=== PATIENT | female | born 1955 | race Caucasian/White ===

== ENCOUNTER 2018-02-28 15:00 | Outpatient (RCR) | payer BC, OTHER, SELFPAY | END 2018-02-28 15:05 | disposition home or self-care (01) | LOC: OT 15:00 | PROVIDERS: Visit Provider Orthopaedic Surgery Adult Reconstructive Orthopaedic Surgery | DX: Z96.611 Presence of right artificial shoulder joint (principal) | CPT/HCPCS: 97014; 97110; 97140; 97166; G0283 ==

== ENCOUNTER 2018-08-02 15:30 | Outpatient (RCR) | payer BC, OTHER, SELFPAY | END 2018-08-02 15:35 | disposition home or self-care (01) | LOC: PT 15:30 | PROVIDERS: Visit Provider Orthopaedic Surgery Adult Reconstructive Orthopaedic Surgery | DX: Z96.652 Presence of left artificial knee joint (principal) | CPT/HCPCS: 97110; 97163 ==

== ENCOUNTER 2019-01-09 10:30 | Outpatient (RCR) | payer BC, OTHER, SELFPAY | END 2019-01-09 10:35 | disposition home or self-care (01) | LOC: PT 10:30 | PROVIDERS: PCP Nurse Practitioner Family; Visit Provider Orthopaedic Surgery Adult Reconstructive Orthopaedic Surgery | DX: Z96.651 Presence of right artificial knee joint (principal); M25.561 Pain in right knee | CPT/HCPCS: 97010; 97014; 97016; 97033; 97035; 97110; 97163; G0283 ==